=== PATIENT | male | born 1950 | race African-American/Black ===

== ENCOUNTER 2023-03-30 09:34 | Inpatient (IN) | payer OTHER, MEDICARE ==
[2023-03-31] MEDS ORDERED: ONDANSETRON 4 MG/2 ML VIAL IVP PRN (12:52)
[2023-03-31] MEDS ORDERED: LACTULOSE 20 GM/30 ML CUP PO PRN (12:52)
[2023-03-31] MEDS ORDERED: CALCIUM CARBONATE 500 MG CHEWABLE PO PRN (12:52)
[2023-03-31] MEDS ORDERED: MELATONIN 3 MG TABLET PO PRN (12:52)
[2023-03-31] MEDS ORDERED: NALOXONE 0.4 MG/ML 1 ML VIAL IV PRN (12:52)
[2023-03-31] MEDS ORDERED: ACETAMINOPHEN TAB 325 MG TAB PO PRN (12:52)
[2023-03-31] MEDS ORDERED: ALPRAZolam 0.25 MG TAB PO PRN (12:52)
[2023-03-31] MEDS: ENOXAPARIN 40 MG/0.4 ML SYRINGE SQ SCH (14:46)
[2023-03-31] MEDS: LACTATED RINGERS 1,000 ML IV SCH (14:56)
--- NOTE | 2023-03-31 17:26 | CT ---
EXAMINATION TYPE: CT pelvis wo con with 3-D reconstruction. DATE OF EXAM: 03/31/2023 COMPARISON: HISTORY: Surgical planning, rt side leg pain. CT DLP: 310 mGycm Automated exposure control for dose reduction was used. FINDINGS: There is a large aggressive lesion involving the upper half of the right hemisacrum, measuring nearly 10 cm. A few scattered small lytic and sclerotic bone foci are noted as well. There is no adenopathy. No bowel obstruction. IMPRESSION: DESTRUCTIVE RIGHT HEMISACRAL LESION.
--- NOTE | 2023-03-31 18:17 | P.HPIM ---
History of Present Illness H&P Date: 03/31/23 Chief Complaint: Tired This is a 72-year-old patient with no family doctor. Does not like to see physicians. Does not take any medications at home. [facility] with right hip pain. Also had taken a fall in January. Had gone to [facility] ER. X-rays at that time reported to be negative. Patient is lost quite a bit of weight. Appetite is decreased. Smoker. Drinks half a pint of vodka daily. Lives alone. Slight cough. CT scans showed left upper lung mass with left hilar adenopathy. Scattered metastasis both the lungs. Also large destructive soft tissue mass invading arising from the sacrum about 7.4 cm medial. Also involving the right iliac bone. Other places. We attempted to find interventional radiology. None was available at [facility] nor 1 was available at [facility]. We talked to Dr. Dat Tsang from orthopedics. He is kindly agreed to perform a bone biopsy. Patient also was seen by oncologist Dr. Ty. And radiation oncologist Dr. Vega. Patient therefore was transferred to [facility] today from [facility], for higher level of care. Plan for biopsy tomorrow. Decreased appetite. Tired. Review of systems: GEN.: Tired decreased appetite weight loss. Generalized weakness EYES: None HEENT: None NECK: None RESPIRATORY: Some shortness of breath CARDIOVASCULAR: None GASTROINTESTINAL: None GENITOURINARY: None MUSCULOSKELETAL: Bone pain e LYMPHATICS: None HEMATOLOGICAL: None PSYCHIATRY: None NEUROLOGICAL: None Social history: Smokes a pack a day for last 57 years. Drinks half a pint of vodka a day for many years. Lives alone. Patient's Sister Marion telephone number [phone] also involved in his care. Physical examination: VITAL SIGNS: 97.5, 89, 16, 125/80, 100% room air GENERAL: BMI 15.1, loss of muscle mass., Subcutaneous tissue. Laying in bed, tired EYES: Pupils equal. Conjunctiva nini l. HEENT: External appearance of nose and ears normal, oral cavity grossly normal. NECK: JVD not raised; masses not palpable. HEART: First and second heart sounds are normal; no edema. LUNGS: Respiratory rate normal; diminished breath sounds. ABDOMEN: Soft, nontender, liver spleen not palpable, no masses palpable. PSYCH: [Alert and oriented x3; mood and affect a bit low. MUSCULOSKELETAL:No Clubbing/cyanosis;muscles-grossly intact. Evidence of OA NEUROLOGICAL: Cranial nerves grossly intact; no facial asymmetry, power and sensation grossly intact. LYMPHATICS: No lymph nodes palpable in the axilla and neck INVESTIGATIONS, reviewed in the clinical context: From [facility]: March 30: Sodium 137 potassium 4.3 creatinine 0.72 white count 2.8 hemoglobin 11 platelets 226 iron 14 ferritin 1588 folate 4.4 B12 [address] scan chest abdomen and pelvis: Spiculated left upper lobe lung mass with left hilar adenopathy. Also other scattered suspected metastasis in both lungs. Large destructive soft tissue mass invading arising from the sacrum and the sacrum condyle measuring 7.4 cm. Lytic lesions L3 vertebra. CT scan lumbar spine without contrast: Possible metastatic lesion involving the right iliac bone, L2 vertebral body and sacrum. Mild multilevel disc space narrowing. Multilevel disc bulges. Degrees of neural foraminal narrowing. Up titration of right L5-S1 neural foraminal from soft tissue mass metastatic lesion. CT right hip without contrast: No fracture no lytic or blastic bony lesions. Assessment plan: -Strongly suspicious of metastatic lesions involving several bony areas. Primary felt to be left upper lung mass hilar adenopathy. With bilateral lung metastasis. Interventional radiology was not available both at [facility] or [facility] for biopsy. Dr. Dary Tsang, is currently agreed to perform a bone biopsy here tomorrow. -Severe protein calorie malnutrition Ensure. Multivitamin. -COPD in a current smoker DuoNeb 3 times daily -Macrocytic anemia likely multifactorial including nutritional -Alcohol use disorder. Drinks half a pint of vodka a day. Last drink about 4 5 days ago Thiamine. CIWA scale. -Chronic ichthyosis -Primary osteoarthritis Tylenol as needed -Full code Past Medical History Past Medical History: COPD, Hearing Disorder / Deafness Additional Past Medical History / Comment(s): ETOH-last drink 03/26/23, malnutrition, weight loss, macrocytic anemia, chronic ichthyosis, Fall in January 2023 and started to have right hip pain that never got better. 03/29/23 CT of chest,abdomen and pelvis at [facility] showing metastatic lesions involving right iliac bone, L2 vertebral body and sacrum-transferred here on 03/31/23 to have a bone biopsy done History of Any Multi-Drug Resistant Organisms: None Reported Past Surgical History: Hernia Repair Past Anesthesia/Blood Transfusion Reactions: Unable to Obtain Past Psychological History: Unable to Obtain Smoking Status: Current every day smoker Past Alcohol Use History: Abuse, Daily Additional Past Alcohol Use History / Comment(s): drinks a half a pint of vodka daily Past Drug Use History: Unable to Obtain - Past Family History Father Family Medical History: Unable to Obtain Mother Family Medical History: Unable to Obtain Medications and Allergies Home Medications Medication Instructions Recorded Confirmed Type No Known Home Medications 03/31/23 03/31/23 History Allergies Allergy/AdvReac Type Severity Reaction Status Date / Time No Known Allergies Allergy Verified 03/31/23 12:26 Physical Exam Vitals: Vital Signs Temp Pulse Resp BP Pulse Ox 03/31/23 12:26 97.5 F L 89 16 125/80 100 Intake and Output 03/31/23 03/31/23 03/31/23 06:59 14:59 22:59 Intake Total 225 Output Total 1 Balance 224 Intake: Intake, IV Titration 225 Amount Lactated Ringers 1,000 ml 225 @ 75 mls/hr IV .[id number] [facility] Rx#:[id number] Output: Urine 1 Other: Weight 45 kg Thrombosis Risk Factor Assmnt - Choose All That Apply Any of the Below Risk Factors Present?: Yes Each Factor Represents 1 point: Abnormal pulmonary function (COPD) Other Risk Factors: Yes Each Risk Factor Represents 2 Points: Age 61-74 years, Malignancy Other congenital or acquired thrombophilia - If yes, enter type in comment: No Thrombosis Risk Factor Assessment Total Risk Factor Score: 5 Thrombosis Risk Factor Assessment Level: High Risk
[2023-03-31 18:28] LABS: Basophils % (A) 0 %; Eosinophils % (A) 0 %; HCT 33.9 % (39.0-53.0); HGB 11.4 gm/dL (13.0-17.5); Lymphocytes # (A) 0.4 k/uL (1.0-4.8); Lymphocytes % (A) 3 %; MCH 35.2 pg (25.0-35.0); MCHC 33.5 g/dL (31.0-37.0); MCV 105.1 fL (80.0-100.0); Macrocytosis Slight; Mean Platelet Volume 8.5; Monocytes # (A) 0.4 k/uL (0-1.0); Monocytes % (A) 4 %; Neutrophils # (A) 10.3 k/uL (1.3-7.7); Neutrophils % (A) 92 %; Platelet Count 265 k/uL (150-450); RBC 3.23 m/uL (4.30-5.90); RDW 12.4 % (11.5-15.5); WBC 11.2 k/uL (3.8-10.6)
[2023-03-31 18:45] LABS: ALT 32 U/L (4-49); AST 55 U/L (17-59); African American GFR (CKD) >90 (>60 ml/min/1.73 sqM); Albumin/Globulin Ratio 0.8; Alkaline Phosphatase 94 U/L (38-126); Anion Gap 4 mmol/L; Blood Urea Nitrogen 26 mg/dL (9-20); Calcium 9.3 mg/dL (8.4-10.2); Carbon Dioxide 25 mmol/L (22-30); Chloride 105 mmol/L (98-107); Globulin 3.8 g/dL; Glucose 121 mg/dL (74-99); Non-African American GFR(CKD) >90 (>60 ml/min/1.73 sqM); Potassium 4.1 mmol/L (3.5-5.1); Sodium 134 mmol/L (137-145); Total Bilirubin 0.4 mg/dL (0.2-1.3); Total Protein 6.8 g/dL (6.3-8.2)
[2023-03-31] MEDS: IPRATROPIUM-ALBUTEROL 3 ML NEB INHALATION SCH (19:32)
[2023-03-31] MEDS: FAMOTIDINE 20 MG TAB PO SCH (20:31)
[2023-04-01] MEDS: NICOTINE 21MG/24HR PATCH TRANSDERM SCH (08:26)
[2023-04-01] MEDS: FOLIC ACID 1 MG TAB PO SCH (08:26)
[2023-04-01] MEDS: THIAMINE 100 MG TAB PO SCH (08:27)
--- NOTE | 2023-04-01 09:03 | P.CNOR ---
History of Present Illness - [facility] Consult date: 04/01/23 Consult reason: other (Sacral lesion) History of present illness: This is a 72-year-old male who was transferred from [facility] yesterday for the purpose of bone biopsy with Dr. Tsang today. The patient has history of very little medical care in the past. Patient states that he does not like doctors. The patient had a fall in January sustaining injury to his right hip. He did come to the ER at that time and x-rays were reportedly negative. He has had difficulty ambulating since the fall. He was admitted to [facility] this week and was found to have a lung mass which is suspicious for malignancy. On further evaluation of his right hip and low back he was found to have a large destructive bony lesion in his sacrum. It was recommended he have a biopsy of the bone for further assessment for possible malignancy. The patient has history of smoking 1 pack of cigarettes per day for 57 years. He also drinks about a half of a pint of vodka per day. He does admit to recent weight loss. He complains of pain about the right hip when he ambulates. Past Medical History Past Medical History: COPD, Hearing Disorder / Deafness Additional Past Medical History / Comment(s): ETOH-last drink 03/26/23, malnutri tion, weight loss, macrocytic anemia, chronic ichthyosis, Fall in January 2023 and started to have right hip pain that never got better. 03/29/23 CT of chest,abdomen and pelvis at [facility] showing metastatic lesions involving right iliac bone, L2 vertebral body and sacrum-transferred here on 03/31/23 to have a bone biopsy done History of Any Multi-Drug Resistant Organisms: None Reported Past Surgical History: Hernia Repair Past Anesthesia/Blood Transfusion Reactions: Unable to Obtain Past Psychological History: Unable to Obtain Smoking Status: Current every day smoker Past Alcohol Use History: Abuse, Daily Additional Past Alcohol Use History / Comment(s): drinks a half a pint of vodka daily Past Drug Use History: Unable to Obtain - Past Family History Father Family Medical History: Unable to Obtain Mother Family Medical History: Unable to Obtain Medications and Allergies Home Medications Medication Instructions Recorded Confirmed Type No Known Home Medications 03/31/23 03/31/23 History Allergies Allergy/AdvReac Type Severity Reaction Status Date / Time No Known Allergies Allergy Verified 03/31/23 12:26 Physical Examination This is a pleasant 72-year-old male in no acute distress. He is alert and oriented x 3. He appears slightly emaciated. Exam of the head neck revealed no obvious deformities. He has fairly good cervical spine motion without difficulty. Exam of the upper extremities is unremarkable. He is able to raise his arms past chest level without difficulty or pain. Neurovascular status to the upper extremities is intact. Exam of the lower extremities reveals no obvious deformity. There is minimal tenderness to palpation about the right hip and sacral region. He is able to lift each leg off the bed independently. He does have some weakness to the right lower extremity compared to the left with dorsiflexion of the feet against resistance. Weakness noted with plantarflexion against resistance as well. Neurovascular status to the lower extremities is grossly intact. Results CT scan of the pelvis performed yesterday reveals a large destructive lesion to the superior right sacrum measuring approximately 10 cm. Degenerative changes noted throughout the lower lumbar spine. Hip and lumbar CT scan images from [facility] were reviewed which reveal a lesion in the L4 vertebral body as well as the above-mentioned sacral lesion. There is also a small lesion in the right ilium. - Labs Labs: Abnormal Lab Results - Last 24 Hours (Table) 03/31/23 03/31/23 Range/Units 17:48 17:48 WBC 11.2 H (3.8-10.6) k/uL RBC 3.23 L (4.30-5.90) m/uL Hgb 11.4 L (13.0-17.5) gm/dL Hct 33.9 L (39.0-53.0) % MCV 105.1 H (80.0-100.0) fL MCH 35.2 H (25.0-35.0) pg Neutrophils # 10.3 H (1.3-7.7) k/uL Lymphocytes # 0.4 L (1.0-4.8) k/uL Sodium 134 L (137-145) mmol/L BUN 26 H (9-20) mg/dL Creatinine 0.62 L (0.66-1.25) mg/dL Glucose 121 H (74-99) mg/dL Albumin 3.0 L (3.5-5.0) g/dL H & H 03/31/23 Range/Units 17:48 Hgb 11.4 L (13.0-17.5) gm/dL Hct 33.9 L (39.0-53.0) % Coagulation 03/31/23 Range/Units 17:48 INR 1.0 (<1.2) Result Diagrams: 03/31/23 17:48 03/31/23 17:48 Assessment and Plan (1) Bone lesion Current Visit: Yes Status: Acute Code(s): M89.9 - DISORDER OF BONE, UNS PECIFIED SNOMED Code(s): 066344600 (2) Suspected malignant neoplasm Current Visit: Yes Status: Acute Code(s): R68.89 - OTHER GENERAL SYMPTOMS AND SIGNS SNOMED Code(s): 220737581 Plan: The clinical and radiographic findings are discussed with the patient. We have been asked by Dr. Becerril to perform a bone biopsy of the sacrum today. He is scheduled for later this afternoon. The patient understands and agrees with the plan for surgical biopsy today.
[2023-04-01 13:07] VITALS: BMI 15.0
[2023-04-01] MEDS ORDERED: HYDROmorphone 0.5 MG/0.5 ML SYRINGE IVP PRN ×3 (14:38)
[2023-04-01] MEDS ORDERED: PHENYLEPHRINE 10 MG/ML VIAL ONE (14:53)
[2023-04-01] MEDS ORDERED: PROPOFOL 10 MG/ML 20 ML VIAL IV ONE (14:53)
[2023-04-01] MEDS ORDERED: SUCCINYLCHOLINE CHLORIDE 200 MG/10 ML VIAL IV ONE (14:53)
[2023-04-01] MEDS ORDERED: MIDAZOLAM 2 MG/2 ML VIAL ONE (14:53)
[2023-04-01] MEDS ORDERED: LIDOCAINE 1% INJ 10MG/ML (20 ML MDV) ONE (14:53)
[2023-04-01] MEDS ORDERED: fentaNYL (PF) 50 MCG/ML 2 ML AMP ONE (14:53)
--- NOTE | 2023-04-01 16:15 | FL ---
EXAMINATION TYPE: FL guidance operating room, XR pelvis AP view Intraoperative/procedural fluoroscopi c services were provided. Total fluoroscopy time is 9.6 seconds with a total of 2 submitted images to PACS. Please see the operative/procedural note for further details. DAP: 0.9 670 Gycm2
[2023-04-01] MEDS: LACTATED RINGERS 1,000 ML IV SCH (20:59)
[2023-04-02 08:23] VITALS: BP 158/97; RESP 16; TEMP 98.8
--- NOTE | 2023-04-02 10:04 | P.PN ---
Subjective Progress Note Date: 04/02/23 This is a 72-year-old male who is status post bone biopsy of the pelvis/sacrum. This is postoperative day #1 patient is seen and evaluated at bedside today. Patient states that his pain is well-controlled and he denies any new complaints. Objective - Vital Signs Vital signs: Vital Signs Temp 98.8 F 04/02/23 07:35 Pulse 80 04/02/23 08:25 Resp 16 04/02/23 07:35 BP 158/97 04/02/23 07:35 Pulse Ox 98 04/02/23 07:35 FiO2 Intake & Output 04/01/23 04/02/23 04/02/23 18:59 06:59 18:59 Intake Total 1050 Output Total 5 3 Balance 1045 -3 Weight 45 kg Intake: IV 1050 Output: Stool 3 Estimated Blood Loss 5 Other: Voiding Method Bedside Commode # Voids 3 6 - Exam On exam patient is resting comfortably in bed in no acute distress. Patient is alert and oriented 3. Patient is able to actively flex and extend bilateral lower extremities at the knees and hips without pain or difficulty. Bilateral lower extremities are warm and well-perfused. Calves are soft nontender to palpation. - Labs CBC & Chem 7: 03/31/23 17:48 03/31/23 17:48 Assessment and Plan Assessment: Status post bone biopsy of the sacrum/pelvis. (1) Bone lesion Current Visit: Yes Status: Acute Code(s): M89.9 - DISORDER OF BONE, UNSPECIFIED SNOMED Code(s): 391052598 (2) Suspected malignant neoplasm Current Visit: Yes Status: Acute Code(s): R68.89 - OTHER GENERAL SYMPTOMS AND SIGNS SNOMED Code(s): 217498755 Plan: 1. Continue routine postoperative care and pain control. 2. Appreciate input from internal medicine. 3. Will continue to follow.
[2023-04-02 15:44] VITALS: PULSE 96
--- NOTE | 2023-04-03 17:55 | P.PN ---
Progress Note - Text Progress Note Date: 04/01/23 Chief Complaint: Tired This is a 72-year-old patient with no family doctor. Does not like to see physicians. Does not take any medications at home. [facility] with right hip pain. Also had taken a fall in January. Had gone to [facility] ER. X-rays at that time reported to be negative. Patient is lost quite a bit of weight. Appetite is decreased. Smoker. Drinks half a pint of vodka daily. Lives alone. Slight cough. CT scans showed left upper lung mass with left hilar adenopathy. Scattered metastasis both the lungs. Also large destructive soft tissue mass invading arising from the sacrum about 7.4 cm medial. Also involving the right iliac bone. Other places. We attempted to find interventional radiology. None was available at [facility] nor 1 was available at [facility]. We talked to Dr. Dat Tsang from orthopedics. He is kindly agreed to perform a bone biopsy. Patient also was seen by oncologist Dr. Ty. And radiation oncologist Dr. Vega. Patient therefore was transferred to [facility] today from [facility], for higher level of care. Plan for biopsy tomorrow. Decreased appetite. Tired. April 01: Patient today underwent biopsy of the pelvis/sacrum by Dr. Tsang. Comfortable. Later in the day patient's sister Marion came to pick him up. Patient will need more equipment for home. Social work will be contacted including a wheelchair. Current medications reviewed Social history: Smokes a pack a day for last 57 years. Drinks half a pint of vodka a day for many years. Lives alone. Patient's Sister Marion telephone number [phone] also involved in his care. Physical examination: VITAL SIGNS: 98.2, 56, 17, 03/15/2021, 100% room air GENERAL: Laying in bed, comfortable, loss of muscle mass., Subcutaneous tissue. EYES: Pupils equal. Conjunctiva nini l. HEENT: External appearance of nose and ears normal, oral cavity grossly normal. NECK: JVD not raised; masses not palpable. HEART: First and second heart sounds are normal; no edema. LUNGS: Respiratory rate normal; diminished breath sounds. ABDOMEN: Soft, nontender, liver spleen not palpable, no masses palpable. PSYCH: [Alert and oriented x3; mood and affect a bit low. MUSCULOSKELETAL:No Clubbing/cyanosis;muscles-grossly intact. Evidence of OA INVESTIGATIONS, reviewed in the clinical context: From [facility]: March 30: Sodium 137 potassium 4.3 creatinine 0.72 white count 2.8 hemoglobin 11 platelets 226 iron 14 ferritin 1588 folate 4.4 B12 [address] scan chest abdomen and pelvis: Spiculated left upper lobe lung mass with left hilar adenopathy. Also other scattered suspected metastasis in both lungs. Large destructive soft tissue mass invading arising from the sacrum and the sacrum condyle measuring 7.4 cm. Lytic lesions L3 vertebra. CT scan lumbar spine without contrast: Possible metastatic lesion involving the right iliac bone, L2 vertebral body and sacrum. Mild multilevel disc space narrowing. Multilevel disc bulges. Degrees of neural foraminal narrowing. Up titration of right L5-S1 neural foraminal from soft tissue mass metastatic lesion. CT right hip without contrast: No fracture no lytic or blastic bony lesions. Assessment plan: -Strongly suspicious of metastatic lesions involving several bony areas. Primary felt to be left upper lung mass hilar adenopathy. With bilateral lung metastasis. Interventional radiology was not available both at [facility] or [facility] for biopsy. Dr. Dary Tsang, carried out the biopsy today -Severe protein calorie malnutrition Ensure. Multivitamin. -COPD in a current smoker DuoNeb 3 times daily -Macrocytic anemia likely multifactorial including nutritional -Alcohol use disorder. Drinks half a pint of vodka a day. Last drink about 4 5 days ago Thiamine. CIWA scale. -Chronic ichthyosis -Primary osteoarthritis Tylenol as needed -Full code Will arrange for patient's wheelchair walker social research assistant to talk to the family and patient be discharged tomorrow. Past Medical History Past Medical History: COPD, Hearing Disorder / Deafness Additional Past Medical History / Comment(s): ETOH-last drink 03/26/23, malnutrition, weight loss, macrocytic anemia, chronic ichthyosis, Fall in January 2023 and started to have right hip pain that never got better. 03/29/23 CT of chest,abdomen and pelvis at [facility] showing metastatic lesions involving right iliac bone, L2 vertebral body and sacrum-transferred here on 03/31/23 to have a bone biopsy done History of Any Multi-Drug Resistant Organisms: None Reported Past Surgical History: Hernia Repair Past Anesthesia/Blood Transfusion Reactions: Unable to Obtain Past Psychological History: Unable to Obtain Smoking Status: Current every day smoker Past Alcohol Use History: Abuse, Daily Additional Past Alcohol Use History / Comment(s): drinks a half a pint of vodka daily Past Drug Use History: Unable to Obtain
--- NOTE | 2023-04-03 17:58 | P.DS ---
Providers Date of admission: 03/31/23 12:19 Expected date of discharge: 04/03/23 Attending physician: Alverto Becerril Consults: 03/31/23 12:56 Consult Physician Routine Consulting Provider: Nnamdi Tsang Consult Reason/Comments: bone biopsy Do you want consulting provider notified?: Yes Primary care physician: Stated None Hospital Course: Chief Complaint: Tired This is a 72-year-old patient with no family doctor. Does not like to see physicians. Does not take any medications at home. [facility] with right hip pain. Also had taken a fall in January. Had gone to [facility] ER. X-rays at that time reported to be negative. Patient is lost quite a bit of weight. Appetite is decreased. Smoker. Drinks half a pint of vodka daily. Lives alone. Slight cough. CT scans showed left upper lung mass with left hilar adenopathy. Scattered metastasis both the lungs. Also large destructive soft tissue mass invading arising from the sacrum about 7.4 cm medial. Also involving the right iliac bone. Other places. We attempted to find interventional radiology. None was available at [facility] nor 1 was available at [facility]. We talked to Dr. Dat Tsang from orthopedics. He is kindly agreed to perform a bone biopsy. Patient also was seen by oncologist Dr. Ty. And radiation oncologist Dr. Vega. Patient therefore was transferred to [facility] today from [facility], for higher level of care. Plan for biopsy tomorrow. Decreased appetite. Tired. April 01: Patient today underwent biopsy of the pelvis/sacrum by Dr. Tsang. Comfortable. Later in the day patient's sister Marion came to pick him up. Patient will need more equipment for home. Social work will be contacted including a wheelchair. April 02: Met with patient, his Sister Marion and patient's niece at the bedside. Lengthy discussion about the findings and plan. Biopsy is done. Follow-up with Dr. Ty from oncology and Dr. Vega from [facility] for radiation oncology. prescription given for commode and wheelchair. Patient unable to walk without support and has poor standing balance. Discussion and discharge planning more than 35 minutes Social history: Smokes a pack a day for last 57 years. Drinks half a pint of vodka a day for many years. Lives alone. Patient's Sister Marion telephone number [phone] also involved in his care. Physical examination: VITAL SIGNS: 98.8, 98, 16, 120/72, 98% room air GENERAL: Laying in bed, comfortable, loss of muscle mass., Subcutaneous tissue. EYES: Pupils equal. Conjunctiva nini l. HEENT: External appearance of nose and ears normal, oral cavity grossly normal. NECK: JVD not raised; masses not palpable. HEART: First and second heart sounds are normal; no edema. LUNGS: Respiratory rate normal; diminished breath sounds. ABDOMEN: Soft, nontender, liver spleen not palpable, no masses palpable. PSYCH: [Alert and oriented x3; mood and affect a bit low. MUSCULOSKELETAL:No Clubbing/cyanosis;muscles-grossly intact. Evidence of OA INVESTIGATIONS, reviewed in the clinical context: From [facility]: March 30: Sodium 137 potassium 4.3 creatinine 0.72 white count 2.8 hemoglobin 11 platelets 226 iron 14 ferritin 1588 folate 4.4 B12 [address] scan chest abdomen and pelvis: Spiculated left upper lobe lung mass with left hilar adenopathy. Also other scattered suspected metastasis in both lungs. Large destructive soft tissue mass invading arising from the sacrum and the sacrum condyle measuring 7.4 cm. Lytic lesions L3 vertebra. CT scan lumbar spine without contrast: Possible metastatic lesion involving the right iliac bone, L2 vertebral body and sacrum. Mild multilevel disc space narrowing. Multilevel disc bulges. Degrees of neural foraminal narrowing. Up titration of right L5-S1 neural foraminal from soft tissue mass metastatic lesion. CT right hip without contrast: No fracture no lytic or blastic bony lesions. Assessment plan: -Strongly suspicious of metastatic lesions involving several bony areas. Primary felt to be left upper lung mass hilar adenopathy. With bilateral lung metastasis. Interventional radiology was not available both at [facility] or [facility] for biopsy. Dr. Dary Tsang, carried out the biopsy today Patient to follow-up with oncology , and Dr. Bala Vega from radiation oncology from [facility]. Numbers were provided. -Severe protein calorie malnutrition Ensure. Multivitamin. -COPD in a current smoker DuoNeb 3 times daily -Macrocytic anemia likely multifactorial including nutritional -Alcohol use disorder. Drinks half a pint of vodka a day. Thiamine. -Chronic ichthyosis -Primary osteoarthritis Tylenol as needed -Full code Disposition: Home with sister Past Medical History Past Medical History: COPD, Hearing Disorder / Deafness Additional Past Medical History / Comment(s): ETOH-last drink 03/26/23, malnutrition, weight loss, macrocytic anemia, chronic ichthyosis, Fall in January 2023 and started to have right hip pain that never got better. 03/29/23 CT of chest,abdomen and pelvis at [facility] showing metastatic lesions involving right iliac bone, L2 vertebral body and sacrum-transferred here on 03/31/23 to [facility] a bone biopsy done History of Any Multi-Drug Resistant Organisms: None Reported Past Surgical History: Hernia Repair Past Anesthesia/Blood Transfusion Reactions: Unable to Obtain Past Psychological History: Unable to Obtain Smoking Status: Current every day smoker Past Alcohol Use History: Abuse, Daily Additional Past Alcohol Use History / Comment(s): drinks a half a pint of vodka daily Past Drug Use History: Unable to Obtain Plan - Discharge Summary Discharge Rx Participant: Yes New Discharge Prescriptions: New Acetaminophen Tab [Tylenol] 650 mg PO Q6HR PRN tab PRN Reason: Mild Pain Or Fever > 100.5 Folic Acid 1 mg PO DAILY #30 tablet Budesonide/Formoterol Fumarate [Symbicort 80-4.5 Mcg Inhaler] 1 puff INHALATION BID #1 each Thiamine [Vitamin B-1] 100 mg PO DAILY #30 tablet Albuterol Sulfate [Albuterol Sulfate Hfa] 1 puff PO Q4-6H #8.5 gm Multivitamin [Multivitamins Adult Gummies] 1 each PO DAILY #30 tablet Famotidine [Pepcid] 20 mg PO BID #60 tablet Discharge Medication List Acetaminophen Tab [Tylenol] 650 mg PO Q6HR PRN tab 04/01/23 [Rx] Albuterol Sulfate [Albuterol Sulfate Hfa] 1 puff PO Q4-6H #8.5 gm 04/02/23 [Rx] Budesonide/Formoterol Fumarate [Symbicort 80-4.5 Mcg Inhaler] 1 puff INHALATION BID #1 each 04/02/23 [Rx] Famotidine [Pepcid] 20 mg PO BID #60 tablet 04/02/23 [Rx] Folic Acid 1 mg PO DAILY #30 tablet 04/02/23 [Rx] Multivitamin [Multivitamins Adult Gummies] 1 each PO DAILY #30 tablet 04/02/23 [Rx] Thiamine [Vitamin B-1] 100 mg PO DAILY #30 tablet 04/02/23 [Rx] Follow up Appointment(s)/Referral(s): Eleazar Aleman [STAFF PHYSICIAN] - 1 Week (Oncology---patient to make own appt. Office closed at time of discharge. ) Pa Caceres MD [STAFF PHYSICIAN] - 1 Week (Primary Care Physician---please schedule own appt. Office closed at time of discharge. Dr. Covarrubias office can assist with setting up Home care post discharge. ) [facility], [NON-STAFF] - 1-2 Days Darby Vega MD [REFERRING] - 1-2 Days (Radiation Oncology---Please schedule own appt. Office closed at time of discharge. ) Patient Instructions/Handouts: Famotidine (By mouth), Albuterol (By breathing), Thiamine (By mouth), Folic Acid (By mouth), Multivitamins, Adult Formula (By mouth), Budesonide/Formoterol (By breathing), How to Stop Smoking (DC), Osteolysis (DC), Fall Prevention (DC), Alcohol Dependence (DC), Needle Biopsy (DC) Activity/Diet/Wound Care/Special Instructions: Keep Optifoam dressing intact. Remove in 7 days. May follow up with Ortho as needed. ensure 1 can three times a day in between meals. Patient will need to make follow-up appt. early next week with Dr. Caceres. His office can assist with setting up HomeCare. Patient has been falling and has even fallen here at the hospital on 04/01/2023. Requires assist with transfers and unable to walk any distance without assistance. Has mobility limitations that cannot be resolved by a cane or a walker. Patient will be discharged to the care of his family who are capable of assisting with pushing wheelchair. Discharge Disposition: HOME WITH HOME HEALTH SERVICES
--- NOTE | 2023-04-06 12:38 | P.OP ---
Date of Procedure: 04/01/23 Implants: bone biopsy with marrow aspirate right sacrum ebl 5 cc complications none Susan Nj assist prone position PREOPERATIVE DIAGNOSES: 1. Metastatic cancer with unknown primary and bone metastases POSTOPERATIVE DIAGNOSES: 1. Metastatic cancer with unknown primary and bone metastases PROCEDURES PERFORMED: 1. Right sacral lesion needle biopsy with bone marrow aspirate ANESTHESIA: General ESTIMATED BLOOD LOSS: Less than 5 cc TOURNIQUET: None PAYROLL MACHINE OPERATOR: Susan Nj PA-C (assistance with: biopsy, sample preparation, closure) COMPLICATIONS: None DISPOSITION: To postanesthesia care unit INDICATIONS: Elizabeth is a 72 year old gentleman who has signs and symptoms c onsistent with metastatic cancer. The primary is unknown, but is suspicious for pulmonary. He has what appear to be metastatic bone lesions in his pelvis, especially on the right side of his sacrum. He wishes to proceed with a biopsy of this lesion. I have explained the details of this surgery thoroughly and also explained the potential risks and complications. These are inclusive of, but not limited to: bleeding, infection, scarring, discomfort, blood vessel and nerve damage, stiffness, weakness, need for further surgery, failure to obtain diagnostic tissue, persistence or worsening of problems, , and other risks. Patient is aware of these risks and agrees to proceed with surgery. The consent form has been signed. PROCEDURE: Appropriate consent was obtained from the patient, who was then taken to the operating room and placed in the supine position. General anesthesia was initiated and the patient was then turned to the prone position. Positioning was performed with care to make sure that all pressure points were adequately padded. Bear-hugger was used along with leg sequential compression device(s). Prepping and draping was completed in the usual aseptic fashion using Chloraprep. Timeout was called, confirming patient identity, side, and procedure. No antibiotics were administered. The preoperative CT scan was used to localize the lesion. A small 5 mm incision was created directly over the right sacral ala and spread gently down to bone with a hemostat. A bone biopsy needle was then used to penetrate through the cortex of his right upper sacrum, guided by C-arm imaging. Three core biospsies of the tissue were taken and sent to pathology in formalin. Finally, the biopsy needle was placed in the bone and aspirate of marrow was performed, obtaining approximately 3 cc of blood. These samples were sent to pathology. The incision was irrigated and closed. The patient tolerated the procedure well, and there were no complications and no significant blood loss. He was then transferred to recovery room in stable condition. Sponge and the needle counts were correct.
== END 2023-04-02 17:44 | disposition home health service (06) | DRG 477 ==
LOC: 5NMEDONC 03-31 12:19
PROVIDERS: ADMIT Hospitalist; ATTEND Hospitalist
DX: C79.51 Secondary malignant neoplasm of bone (principal); E43 Unspecified severe protein-calorie malnutrition; C34.12 Malignant neoplasm of upper lobe, left bronchus or lung; Z68.1 Body mass index [BMI] 19.9 or less, adult; F17.210 Nicotine dependence, cigarettes, uncomplicated; H91.90 Unspecified hearing loss, unspecified ear; J44.9 Chronic obstructive pulmonary disease, unspecified; Z91.81 History of falling; Z60.2 Problems related to living alone; Z28.21 Immunization not carried out because of patient refusal; Q80.8 Other congenital ichthyosis; M19.91 Primary osteoarthritis, unspecified site; R59.0 Localized enlarged lymph nodes; Z71.3 Dietary counseling and surveillance
CPT/HCPCS: 72170; 72192; 80053; 85025; 85610; 88173; 88305; 88307; 88311; 88341; 88342; 94640

== ENCOUNTER → 2023-04-16 | Outpatient (CLI) | payer MEDICARE ==
--- NOTE | 2023-04-16 19:38 | MR ---
EXAMINATION TYPE: MR brain wo/w con DATE OF EXAM: 04/16/2023 3:59 PM CLINICAL INDICATION:Male, 72 years old with history of C78.00 LUNG CANCER; PHH, Metastatic NSCLC. COMPARISON: None TECHNIQUE: Multi planar, multi sequence imaging was performed through the brain including: T1, T2, In version recovery, susceptibility weighted imaging and gradient echo imaging and Diffusion weighted im aging. The patient was then given intravenous contrast and multi planar, T1 fat-saturation images wer e obtained. IV Contrast: 4.5 cc Gadavist FINDINGS: Mild cerebral atrophy with proportional dilation of ventricular system. Diffusion-weighted imaging s hows no evidence of restricted diffusion to suggest acute/subacute infarct. Intracranial arterial maty w voids are maintained. Midline structures show no abnormality. Scattered foci of high T2 signal inte nsity are seen within the periventricular white matter. The susceptibility weighted images do not rev eal any evidence for micro-hemorrhage. After administration of gadolinium, no abnormal enhancement is seen. The bone marrow signal is within normal limits. Paranasal sinuses and mastoid air cells: No significant paranasal sinus disease. Visualized orbits: Orbital contents are intact. IMPRESSION: 1. No evidence of intracranial mass, acute/subacute infarct, or abnormal enhancement. 2. Nonspecific white matter changes, likely related to small vessel ischemic disease.
== END | disposition home or self-care (01) ==
LOC: RADMRIMAIN 15:00
PROVIDERS: ATTEND Internal Medicine Hematology & Oncology
DX: G93.89 Other specified disorders of brain (principal); C78.00 Secondary malignant neoplasm of unspecified lung; C80.1 Malignant (primary) neoplasm, unspecified
CPT/HCPCS: 70553; A9585